=== PATIENT | female | born 1990 | race Two or more races ===

== ENCOUNTER 2017-11-05 19:47 | Outpatient (CLI) | payer OTHER ==
[~2017-11-05 19:47] MED LIST: BENTYL20 MG PO; LOMOTIL TABLET1 EACH PO; PROMETHAZINE HC25 M1 PO
[2017-11-05 20:03] VITALS: BP 144/77
[2017-11-05 22:36] VITALS: BP 126/75
[2017-11-05] MEDS ORDERED: SYNTHROID25 MCG PO (22:48)
[2017-11-05] MEDS ORDERED: PRENATAL VITAM1 EA11 PO (22:48)
== END 2017-11-05 23:00 | disposition home or self-care (01) ==
LOC: LDRP-OP 19:47 → 2WEST 19:48
DX: O44.02 Complete placenta previa NOS or without hemorrhage, second trimester (principal); Z3A.23 23 weeks gestation of pregnancy
CPT/HCPCS: 76805; G0378